=== PATIENT | male | born 1985 | race Two or more races ===

== ENCOUNTER → 2017-03-13 | Outpatient (CLI) | payer OTHER | END | disposition home or self-care (01) | LOC: MI 03-10 09:30 | PROC: BR30ZZZ Magnetic Resonance Imaging (MRI) of Cervical Spine (ICD-10-PCS; principal; 2017-03-13) | DX: M50.30 Other cervical disc degeneration, unspecified cervical region (principal); M54.10 Radiculopathy, site unspecified ==

== ENCOUNTER → 2017-05-05 | Outpatient (CLI) | payer OTHER | END | disposition home or self-care (01) | LOC: MI 09:00 | PROC: BP39ZZZ Magnetic Resonance Imaging (MRI) of Left Shoulder (ICD-10-PCS; principal; 2017-05-05) | DX: M75.42 Impingement syndrome of left shoulder (principal) ==